=== PATIENT | male | born 1960 | race Caucasian/White ===

== ENCOUNTER 2024-11-08 02:00 | Emergency (ER) | payer MEDICARE, OTHER ==
[2024-11-08] MEDS ORDERED: Sodium Chloride 0.9% 10 ML Syringe FLUSH PRN (02:28)
[2024-11-08 02:40] LABS: BASOPHILS ABSOLUTE AUTO 0.09 K/uL (0.00-0.10); BASOPHILS PERCENT AUTO 0.5 % (0.1-1.3); EOSINOPHILS ABSOLUTE AUTO 0.89 K/uL (0.00-0.40); EOSINOPHILS PERCENT AUTO 4.5 % (0.0-5.4); IMMATURE GRAN ABSOLUTE AUTO 0.27 K/uL (0.00-0.23); IMMATURE GRAN PERCENT AUTO 1.4 % (0.0-0.7); LYMPHOCYTES ABSOLUTE AUTO 1.47 K/uL (0.8-3.3); LYMPHOCYTES PERCENT AUTO 7.4 % (11.4-47.7); MONOCYTES ABSOLUTE AUTO 1.63 K/uL (0.20-0.90); MONOCYTES PERCENT AUTO 8.2 % (3.3-12.6); NEUTROPHILS ABSOLUTE AUTO 15.60 K/uL (1.0-7.6); NEUTROPHILS PERCENT AUTO 78.0 % (40.0-78.1); PLATELET COUNT,PLT 334 K/uL (130-375); RED BLOOD CELL COUNT 3.74 M/uL (4.14-5.76); WHITE BLOOD CELL COUNT,WBC 20.0 K/uL (3.2-11.0)
[2024-11-08] MEDS: Ketorolac 15 MG/ML SDV IVPUSH ONE (02:42)
[2024-11-08] MEDS: Ondansetron 4 MG/2 ML SDV IVPUSH ONE (02:44)
[2024-11-08 03:04] LABS: A/G RATIO 0.5 (1.2-2.2); ALANINE AMINOTRANSFERASE,ALT 18 U/L (12-78); ASPARTATE AMNIOTRANSFERASE,AST 12 U/L (15-37); BILIRUBIN TOTAL 0.3 mg/dL (0.2-1.0); BLOOD UREA NITROGEN,BUN 66 mg/dL (7-18); CARBON DIOXIDE,CO2 24 mmol/L (21-32); CHLORIDE,CL 98 mmol/L (100-108); EST CRCL DRUG DOSING (CG) 16.90 mL/min; ESTIMATED GFR 14 mL/min (>60); GLUCOSE RANDOM 161 mg/dL (74-106); POTASSIUM,K 4.7 mmol/L (3.6-5.2); PROTEIN TOTAL,TP 7.4 g/dL (6.4-8.2); SODIUM,NA 134 mmol/L (140-148)
[2024-11-08 03:07] LABS: CREATININE 4.3 mg/dL (0.8-1.3)
[2024-11-08] MEDS: Iopamidol 612 MG/ML 100 ML Bottle IV SCH (03:33)
[2024-11-08 03:43] LABS: APPEARANCE,URINE CLOUDY (CLEAR); GLUCOSE,URINE 250 mg/dL (NEGATIVE); OCCULT BLOOD,URINE LARGE (NEGATIVE)
== END 2024-11-08 07:19 ==
LOC: JP.ED 02:00 → EDBD 02:00 → JP.ED 07:19
DX: N17.9 Acute kidney failure, unspecified (principal); R31.0 Gross hematuria; Z87.440 Personal history of urinary (tract) infections; Z79.82 Long term (current) use of aspirin; Z79.899 Other long term (current) drug therapy
CPT/HCPCS: 36415; 51702; 74176; 80053; 81001; 83605; 85025; 87040; 87086; 93005; 96365; 96375; 99285; J0696; J1885; J2270; J2405; J7030; Q9967

== ENCOUNTER 2024-12-10 07:24 | Day surgery (SDC) | payer MEDICARE ==
[2024-12-10] MEDS ORDERED: Propofol 200 MG/20 ML SDV ONE (07:42)
[2024-12-10] MEDS ORDERED: fentaNYL 100 MCG/2 ML SDV ONE (07:42)
[2024-12-10] MEDS ORDERED: Midazolam 1 MG/ML 2 ML SDV ONE (07:42)
[2024-12-10] MEDS: Lactated Ringers 1,000 ML IV SCH (08:19)
== END 2024-12-10 10:50 | disposition home or self-care (01) ==
LOC: JP.SDS 07:24
PROVIDERS: ATTEND Family Medicine
DX: Z12.11 Encounter for screening for malignant neoplasm of colon (principal); K57.30 Diverticulosis of large intestine without perforation or abscess without bleeding; K64.8 Other hemorrhoids; E11.9 Type 2 diabetes mellitus without complications; Z86.0101 Personal history of adenomatous and serrated colon polyps
CPT/HCPCS: G0105; J2250; J2704; J3010; J7120